=== PATIENT | female | born 1980 | race Caucasian/White ===

== ENCOUNTER → 2021-07-01 | Day surgery (SDC) | payer MEDICARE ==
[~2021-07-01] MED LIST: ACETAMINOPHEN650 MG PEG; ASPIRIN81 MG GT; ATIVAN0.5 MG GT; BLINK GEL TEARS10 ML OU; CALCIUM GT; CALMOSEPTINE OI71 GM TOP; CLOBAZAM2.5 MG/1 M GT; FERROUS SU220 MG/51 GT; FIBERSOURCE HN250 ML GT; FLONASE ALLERG9.9 ML INH; KEPPRA250 MG GT; MIRALAX17 GM PO; ONDANSETRON ODT4 MG GT; POVIDONE IODINE 0.05% 0.05 % ML PO ONE; PROPOFOL IV EMULSION 10 MG/ML 20 ML VIAL ONE; SUCRALFATE1 GM GT; SUPPORT237 ML GT; SYSTANE COMPLE1.5 ML OP; VIMPAT10 MG/1 ML GT; VITAMIN B-650 MG PO; VITAMIN D GT; ZONEGRAN100 MG GT
[2021-07-01 17:00] VITALS: BP 98/69
== END | disposition home or self-care (01) ==
LOC: OR 13:39
PROVIDERS: ATTEND Internal Medicine Gastroenterology
DX: K94.23 Gastrostomy malfunction (principal); K21.00 Gastro-esophageal reflux disease with esophagitis, without bleeding; K44.9 Diaphragmatic hernia without obstruction or gangrene; K29.50 Unspecified chronic gastritis without bleeding; E11.9 Type 2 diabetes mellitus without complications; G40.909 Epilepsy, unspecified, not intractable, without status epilepticus; D64.9 Anemia, unspecified; Z79.82 Long term (current) use of aspirin; Z79.899 Other long term (current) drug therapy
CPT/HCPCS: 36415; 43246; 82948; 84702; J2704; U0002

== ENCOUNTER → 2024-01-31 | Day surgery (SDC) | payer MEDICARE ==
[~2024-01-31] MED LIST changes: +ASPIRIN EC81 MG PO; +ATIVAN1 MG PO; +BLINK GEL TEARS10 ML; +CETIRIZINE HCL10 MG GT; +DESITIN57 GM; +EPHEDRINE SULFATE INJ 50 MG/ML VIAL ONE; +FLUDROCORT GT; +FLUDROCORTISON0.1 MG PO; +ISOSOURCE 1.5250 ML; +LOPERAMIDE2 MG PO; +METOCLOPRAM5 MG/5 ML PO; +METOCLOPRAMIDE10 MG GT; +MIDODRINE HCL5 MG PO; +PANTOPRAZOLE SO40 MG PO; -POVIDONE IODINE 0.05% 0.05 % ML PO ONE; +ROBAFEN CF LIQ118 ML; +ROBAFEN CF LIQ118 ML GT; +SYSTANE BALANCE10 ML; +SYSTANE COMPLE1 EACH IO; +TRAZODONE HCL100 MG PO; +VITAMIN D31250 MCG GT; +ZONISAMIDE100 MG GT; +[UNRECOGNIZED DRUG - OTHER]; +[UNRECOGNIZED DRUG - OTHER] GT
[2024-01-31] MEDS: LACTATED RINGER'S 1,000 ML ONE (11:48)
[2024-01-31 14:15] VITALS: BP 112/72; PULSE 76; RESP 17; O2SAT 98
== END | disposition home or self-care (01) ==
LOC: OR 10:11
PROVIDERS: ATTEND Internal Medicine Gastroenterology
DX: K94.23 Gastrostomy malfunction (principal); T18.2XXA Foreign body in stomach, initial encounter; K20.90 Esophagitis, unspecified without bleeding; K21.9 Gastro-esophageal reflux disease without esophagitis; W44.F1XA Bezoar entering into or through a natural orifice, initial encounter; Y83.3 Surgical operation with formation of external stoma as the cause of abnormal reaction of the patient, or of later complication, without mention of misadventure at the time of the procedure; Z88.8 Allergy status to other drugs, medicaments and biological substances; Z79.82 Long term (current) use of aspirin; Z79.899 Other long term (current) drug therapy; Z87.828 Personal history of other (healed) physical injury and trauma
CPT/HCPCS: 36415; 43246; 84702; 93005; J2704; J7121; 43239